=== PATIENT | female | born 1965 | race Caucasian/White ===

== ENCOUNTER 2022-05-26 11:18 | Outpatient (CLI) | payer BC | END 2022-05-26 11:19 | disposition home or self-care (01) | LOC: TBSIIMAG 11:18 | PROVIDERS: ATTEND Neurological Surgery | DX: M54.50 Low back pain, unspecified (principal); M43.16 Spondylolisthesis, lumbar region; M47.812 Spondylosis without myelopathy or radiculopathy, cervical region; M43.17 Spondylolisthesis, lumbosacral region | CPT/HCPCS: 72110 ==